=== PATIENT | male | born 1960 | race Caucasian/White ===

== ENCOUNTER → 2016-11-02 | Outpatient (CLI) | payer OTHER ==
[~2016-11-02] MED LIST: ABILIFY15 MG PO; ADVIL,NUPRIN,M200 MG PO; ATARAX,VISTARIL25 MG PO; BUSPAR10 MG PO; BUSPIRONE HCL15 MG PO; CEFUROXIME500 MG PO; CHILD ASPIRIN81 M1 PO; CITALOPRAM HBR40 MG PO; CLONAZEPAM0.5 MG PO; DEPO-TESTOS100 MG/ML IM; DULOXETINE HCL30 MG PO; EFFEXOR XR150 MG PO; ERGOCALCIF50000 UNIT PO; FENOFIBRATE160 M1 PO; FLOMAX0.4 MG PO; GLUCOVANCE 51 TABLET PO; LATUDA20 MG PO; LEVAQUIN250 MG PO; LISINOPRIL10 MG PO; LISINOPRIL20 MG PO; METFORMIN HCL500 MG PO; NAPROSYN500 MG PO; NORCO 5/3251 TABLET PO; OMEPRAZOLE20 MG PO; PANTOPRAZOLE SO40 MG PO; PROZAC20 MG PO; RISPERDAL0.5 MG PO; RISPERIDONE1 MG PO; RITALIN20 MG PO; TESTOSTERO200 MG/12 IM; VIT B 12; WELLBUTRIN XL300 MG PO; ZOFRAN4 MG PO
== END | disposition home or self-care (01) ==
LOC: NUC 08:11
DX: K31.84 Gastroparesis (principal)
CPT/HCPCS: 78264; A9541